=== PATIENT | female | born 1970 | race African-American/Black ===

== ENCOUNTER 2017-08-04 02:26 | Inpatient (IN) | payer SELFPAY ==
[~2017-08-04] VITALS: Ht 177.8 cm; Wt 117.9 kg
[2017-08-04] VITALS (7 sets, daily range): BP systolic 100–145; BP diastolic 55–75
[2017-08-04 06:17] LABS: BASOPHILS % 0.8 % (0.0-2.0); EOSINOPHILS % 0.5 % (0.0-5.0); HEMATOCRIT. 25.7 % (36.0-48.0); LYMPHOCYTES % 21.9 % (20.0-50.0); MEAN CORPUSCULAR HEMOGLOBIN 15.6 pg (28.0-32.0); MEAN CORPUSCULAR VOLUME 56.7 fL (81.0-99.0); MEAN PLATELET VOLUME 8.1 fl (7.4-10.4); MONOCYTES % 12.5 % (2.0-8.0); NEUTROPHILS % 64.3 % (40.0-76.0); PLATELET 564 x1000/uL (130-400); RED BLOOD CELL COUNT 4.52 mill/uL (4.2-5.4)
[2017-08-04 06:28] LABS: CLARITY URINE CLEAR (CLEAR); COLOR URINE YELLOW (YELLOW); GLUCOSE URINE NEGATIVE (NEGATIVE); KETONES URINE TRACE (NEGATIVE); LEUKOCYTE ESTERASE URINE 1+ (NEGATIVE); NITRITE URINE NEGATIVE (NEGATIVE); OCCULT BLOOD URINE NEGATIVE (NEGATIVE); PH URINE 6.5 (4.5-8.0); PROTEIN URINE NEGATIVE (NEGATIVE); SPECIFIC GRAVITY URINE 1.017 (1.005-1.030)
[2017-08-04 06:29] LABS: CARBON DIOXIDE 25 mEq/L (21-32); CHLORIDE 108 mEq/L (98-107)
[2017-08-04 07:05] LABS: PLATELET ESTIMATE INCREASED
[2017-08-04] MEDS ORDERED: SODIUM CHLORIDE 0.9% 1,000 ML IV SCH (07:09)
[2017-08-04] MEDS ORDERED: ONDANSETRON HCL 4MG/2ML VIAL IV PRN (08:15)
[2017-08-04] MEDS ORDERED: IPRATROPIUM/ALBUTEROL 0.5-3(2.5)MG/3ML NEB INH PRN (08:15)
[2017-08-04] MEDS ORDERED: NA PHOS,M-B/NA PHOS,DI-BA ENEMA 118ML PR PRN (08:15)
[2017-08-04] MEDS ORDERED: ACETAMINOPHEN 325MG TABLET PO PRN (08:15)
[2017-08-04] MEDS ORDERED: DIPHENHYDRAMINE 50MG/ML VIAL IV PRN (08:15)
[2017-08-04] MEDS ORDERED: KETOROLAC 15MG/ML VIAL IV PRN (08:15)
[2017-08-04] MEDS ORDERED: NITROGLYCERIN 0.4MG TABLET SL SL PRN (08:15)
[2017-08-04] MEDS ORDERED: CLONIDINE 0.1MG TABLET PO PRN (08:15)
[2017-08-04] MEDS ORDERED: DOCUSATE SODIUM 100MG CAPSULE PO PRN (08:15)
[2017-08-04] MEDS ORDERED: GUAIFENESIN 200MG/10ML SUGAR FREE UDC PO PRN (08:15)
[2017-08-04] MEDS ORDERED: MAGNESIUM/ALUMINUM HYDROXIDE/SIMETHICONE 30ML UDC PO PRN (08:15)
[2017-08-04 08:28] LABS: TOTAL IRON BINDING CAPACITY 401 ug/dL (250-450)
[2017-08-04] MEDS: FERROUS SULFATE 300MG/5ML UDC PO SCH (18:06)
[2017-08-04] MEDS ORDERED: LEVOFLOXACIN 500MG PREMIX 100 ML IV SCH (20:00)
[2017-08-04] MEDS: FAMOTIDINE 20MG/2ML VIAL IV SCH (20:17)
[2017-08-04] MEDS ORDERED: ZOLPIDEM TARTRATE 5MG TABLET PO PRN (21:00)
[2017-08-05] VITALS: BP 119/67
[2017-08-05 01:10] VITALS: BP 132/70
[2017-08-05] MEDS: FERROUS SULFATE 300MG/5ML UDC PO SCH (07:41)
[2017-08-05 08:00] VITALS: BP 127/72
[2017-08-05] MEDS: FAMOTIDINE 20MG/2ML VIAL IV SCH (09:23)
[2017-08-05 12:00] VITALS: BP 125/71
[2017-08-05 12:34] VITALS: BP 118/73
== END 2017-08-05 15:15 | disposition home or self-care (01) | DRG 532 ==
LOC: ER 02:26 → 5WST 07:11 → ENRESERV 12:00
PROVIDERS: ADMIT Internal Medicine; ATTEND Internal Medicine
PROC: 30233N1 Transfusion of Nonautologous Red Blood Cells into Peripheral Vein, Percutaneous Approach (ICD-10-PCS; principal; 2017-08-04)
DX: N93.8 Other specified abnormal uterine and vaginal bleeding (principal); E83.51 Hypocalcemia; N39.0 Urinary tract infection, site not specified; D64.9 Anemia, unspecified; E66.01 Morbid (severe) obesity due to excess calories; Z72.89 Other problems related to lifestyle; Z68.37 Body mass index [BMI] 37.0-37.9, adult
CPT/HCPCS: 36415; 71010; 80048; 81001; 81025; 83036; 83540; 83550; 84484; 85025; 86850; 86900; 86920; 93005; 93970; 96360; 99285; C1893; J1956; J3490; J7030; J7050; P9016

== ENCOUNTER 2019-04-04 17:50 | Emergency (ER) | payer MEDICAID ==
[~2019-04-04] VITALS: Ht 177.8 cm; Wt 120.0 kg
[2019-04-04 19:20] VITALS: BP 159/69
== END 2019-04-05 04:26 | disposition home or self-care (01) ==
LOC: ER 19:49
DX: J06.9 Acute upper respiratory infection, unspecified (principal); H66.92 Otitis media, unspecified, left ear; R03.0 Elevated blood-pressure reading, without diagnosis of hypertension
CPT/HCPCS: 99283